=== PATIENT | male | born 1970 | race African-American/Black ===

== ENCOUNTER 2018-04-12 20:33 | Emergency (ER) | payer SELFPAY ==
[~2018-04-12] VITALS: Ht 180.3 cm; Wt 89.7 kg
[2018-04-12 20:37] VITALS: BP 148/77; PULSE 101; RESP 20; TEMP 98.1; O2SAT 98
--- NOTE | 2018-04-12 21:01 | PD ---
HPI Chief Complaint: ENT Complaint Time Seen by Provider: 20:44 Travel History International Travel<30 days: No Contact w/Intl Traveler<30days: No Traveled to known affect area: No History of Present Illness HPI The patient is a 47-year-old -[place] male who presents to the emergency department for possible foreign body, bug, the right ear. The patient states he felt a bug crawl into the right ear last night. The patient was seen at [facility] earlier today and they tried to remove it, however, stated they did not have the proper equipment and advised him to follow -up with ENT. They did place the patient on antibiotic eardrops, however, he has not yet filled the prescription. The patient states the bug has not been moving, but there is pain and discomfort in the right ear. Symptoms are moderate. PFSH Past Medical History Medical History: Denies Significant Hx Diminished Hearing: No Immunizations Current: Yes Tetanus Vaccination: < 5 Years Influenza Vaccination: No Past Surgical History Surgical History: No Previous Surgery Social History Alcohol Use: Yes (OCC) Tobacco Use: Yes Substance Use: Yes (POT) Allergies-Medications (Allergen,Severity, Reaction): Coded Allergies: No Known Allergies (Verified Allergy, Unknown, 04/12/18) Reported Meds & Prescriptions Reported Meds & Active Scripts Active No Active Prescriptions or Reported Medications Review of Systems Except as stated in HPI: all other systems reviewed are Neg General / Constitutional: No: Fever HENT: Positive: Earache, Other (As noted in the history of present illness) Physical Exam Narrative GENERAL: Awake, alert, pleasant 47-year-old male who appears his stated age and is in no acute respiratory distress. SKIN: Focused skin assessment warm/dry. HEAD: Atraumatic. Normocephalic. EYES: Pupils equal and round. No scleral icterus. No injection or drainage. ENT: No nasal bleeding or discharge. Mucous membranes pink and moist. Left tympanic membranes translucent and the left EAC is clear. The right tympanic membrane cannot be visualized. The right EAC has a large bug within the EAC. NECK: Trachea midline. No JVD. MUSCULOSKELETAL: No obvious deformities. No clubbing. No cyanosis. No edema. NEUROLOGICAL: Awake and alert. No obvious cranial nerve deficits. Motor grossly within normal limits. Normal speech. PSYCHIATRIC: Appropriate mood and affect; insight and judgment normal. Data Data Last Documented VS Vital Signs Date Time Temp Pulse Resp B/P (MAP) Pulse Ox O2 Delivery O2 Flow Rate FiO2 04/12/18 20:37 98.1 101 20 148/77 (100) 98 Orders Orders Ed Discharge Order (04/12/18 20:57) MDM Medical Decision Making Medical Screen Exam Complete: Yes Emergency Medical Condition: Yes Medical Record Reviewed: Yes Differential Diagnosis Differential diagnosis includes foreign body right ear, tympanic membrane perforation, otitis media, otitis externa, malignant otitis, serous otitis. Narrative Course The large bug was removed from the right EAC under direct visualization with alligator forceps. The bug measured approximately 2.5 cm in length. The EAC was reinspected, mild irritation with erythema but the tympanic membrane appears to be intact. The patient was advised to take the eardrops as previously prescribed at [facility] in follow-up with a primary physician. Procedures Procedure Narrative A foreign body was removed from the right external auditory canal under direct visualization with an otoscope and alligator forceps. The patient tolerated the procedure without difficulty. There was no obvious complications. Diagnosis Primary Impression: Foreign body in right ear Qualified Codes: T16.1XXA - Foreign body in right ear, initial encounter Patient Instructions: General Instructions Additional Instructions: Take eardrops as previously directed. Follow-up with your primary physician. Return if symptoms worsen or progress. Med/Other Pt SpecificInfo: No Change to Meds Scripts No Active Prescriptions or Reported Meds Disposition: 01 DISCHARGE HOME Condition: Stable Oz Valencia MD Apr 12, 2018 21:01
== END 2018-04-12 21:13 | disposition home or self-care (01) ==
LOC: PHEFT 20:33
DX: T16.1XXA Foreign body in right ear, initial encounter (principal)
CPT/HCPCS: 69200

== ENCOUNTER 2018-04-17 09:40 | Emergency (ER) | payer SELFPAY ==
[~2018-04-17] VITALS: Ht 180.3 cm; Wt 92.0 kg
[2018-04-17 09:49] VITALS: BP 140/89; PULSE 97; TEMP 98; O2SAT 98
[2018-04-17] MEDS ORDERED: BACT800T5 PO (10:18)
--- NOTE | 2018-04-17 10:19 | PD ---
HPI Chief Complaint: Skin Problem Time Seen by Provider: 10:01 Travel History International Travel<30 days: No Contact w/Intl Traveler<30days: No Traveled to known affect area: No History of Present Illness HPI This is a 47-year-old male here with possible spider bite to the left thigh. Area has been present for 2-3 days. He reports redness and tenderness at the site. Symptom severity is moderate. No fever chills. No aggravating or alleviating factors. PFSH Past Medical History Medical History: Denies Significant Hx Diminished Hearing: No Immunizations Current: Yes Social History Alcohol Use: Yes (OCC) Tobacco Use: Yes Substance Use: Yes (POT) Allergies-Medications (Allergen,Severity, Reaction): Coded Allergies: No Known Allergies (Verified Allergy, Unknown, 04/17/18) Reported Meds & Prescriptions Reported Meds & Active Scripts Active No Active Prescriptions or Reported Medications Review of Systems Except as stated in HPI: all other systems reviewed are Neg General / Constitutional: No: Fever Eyes: No: Visual changes HENT: No: Headaches Cardiovascular: No: Chest Pain or Discomfort Respiratory: No: Shortness of Breath Gastrointestinal: No: Abdominal Pain Genitourinary: No: Dysuria Physical Exam Narrative GENERAL: Alert and well-appearing 47-year-old male SKIN: 2 cm area of erythema/induration with central opening to the left anterior thigh. No fluctuance or lymphangitis. No drainage from the site. HEAD: Normocephalic. EYES: No injection or drainage. NECK: Supple CARDIOVASCULAR: Regular rate and rhythm RESPIRATORY: Breath sounds equal bilaterally. No accessory muscle use. GASTROINTESTINAL: Abdomen soft, non-tender, nondistended. MUSCULOSKELETAL: No cyanosis, or edema. Data Data Last Documented VS Vital Signs Date Time Temp Pulse Resp B/P (MAP) Pulse Ox O2 Delivery O2 Flow Rate FiO2 04/17/18 09:49 98.0 97 140/89 (106) 98 MDM Medical Decision Making Medical Screen Exam Complete: Yes Emergency Medical Condition: Yes Differential Diagnosis Early abscess, infected insect bite, cellulitis Narrative Course 47-year-old male here with early abscess versus infected insect bite. Area has a central opening. There is no fluctuance. Incision and drainage is not warranted at this time. He will be started on Bactrim. Instructed to apply warm compresses. Return precautions discussed. Diagnosis Primary Impression: Abscess Referrals: Primary Care Physician Additional Instructions: Antibiotics as directed. Apply warm compresses to the area several times per day. Scripts Sulfamethoxazole-Trimethoprim (Bactrim DS) 800-160 Mg Tab 1 TAB PO BID for Infection, #20 TAB 0 Refills Prov: Lois Aguilar 04/17/18 Disposition: 01 DISCHARGE HOME Condition: Stable Lois Aguilar Apr 17, 2018 10:19
== END 2018-04-17 10:30 | disposition home or self-care (01) ==
LOC: PHEFT 09:40
DX: L02.416 Cutaneous abscess of left lower limb (principal); Z72.0 Tobacco use; F12.90 Cannabis use, unspecified, uncomplicated
CPT/HCPCS: 99283